=== PATIENT | male | born 1990 | race American Indian/Alaskan Native ===

== ENCOUNTER 2017-04-18 01:25 | Emergency (ER) | payer MEDICARE ==
[2017-04-18 03:01] LABS: Urine Drugs of Abuse Note Disclamer
[2017-04-18 03:32] LABS: Bilirubin,Urine NEG (Negative); Blood,Urine NEG (Negative); Ketones,Urine TR mg/dL (Negative); Leukocyte Esterase,Urine NEG (Negative); Mucus,Urine 3+ /HPF; Nitrite,Urine NEG (Negative)
[2017-04-18] MEDS ORDERED: ATIVAN IM PRN (06:14)
--- NOTE | 2017-04-18 06:15 | Emergency Department Report ---
ED Psych HPI - General Chief Complaint: Psych Stated Complaint: SUICIDAL IDEATIONS Time Seen by Provider: 04/18/17 06:13 Source: patient, RN notes reviewed Mode of arrival: Ambulatory Limitations: No Limitations - History of Present Illness Initial Comments: This is a 26-year-old male. He is previously unknown to me. He reports a history of hypertension. He does not have a local primary care doctor. The patient presents to the ER with the plan for suicide. He thinks he wants to overdose or drown himself. The symptoms are constant. He describes no exacerbating or relieving factors. He does not have access to guns or firearms. He is not expressing hallucinations. He does not have any headache, neck pain, chest pain, abdominal pain, testicular pain, irritative or obstructive urinary symptoms. He denies penile discharge. MD Complaint: suicidal ideation -: Gradual Associated Psychiatric Symptoms: suicidal ideation Quality: constant Improves With: none Worsens With: none If Self Harm: admits thoughts of, has plan - Related Data Home Medications Medication Instructions Recorded Confirmed Last Taken Imipramine HCl 50 mg PO QHS 04/18/17 04/18/17 04/11/17 Losartan [Cozaar] 25 mg PO QDAY 04/18/17 04/18/17 04/11/17 Propranolol [Inderal] 10 mg PO ONCE 04/18/17 04/18/17 04/11/17 amLODIPine [Norvasc] 10 mg PO DAILY 04/18/17 04/18/17 04/11/17 Allergies Allergy/AdvReac Type Severity Reaction Status Date / Time No Known Allergies Allergy Unverified 04/18/17 01:40 ED Review of Systems ROS: Stated complaint: SUICIDAL IDEATIONS Other details as noted in HPI Constitutional: denies: fever, malaise Eyes: denies: vision change ENT: denies: epistaxis Respiratory: denies: cough Cardiovascular: denies: chest pain Gastrointestinal: denies: abdominal pain Genitourinary: denies: dysuria, discharge, testicular pain Musculoskeletal: denies: back pain Skin: denies: lesions Neurological: denies: weakness Psychiatric: suicidal thoughts ED Past Medical Hx - Past Medical History Previous Medical History?: Yes Hx Hypertension: Yes - Surgical History Past Surgical History?: Yes Additional Surgical History: Navel - Social History Smoking Status: Never Smoker Substance Use Type: None - Medications Home Medications: Home Medications Medication Instructions Recorded Confirmed Last Taken Type Imipramine HCl 50 mg PO QHS 04/18/17 04/18/17 04/11/17 History Losartan [Cozaar] 25 mg PO QDAY 04/18/17 04/18/17 04/11/17 History Propranolol [Inderal] 10 mg PO ONCE 04/18/17 04/18/17 04/11/17 History amLODIPine [Norvasc] 10 mg PO DAILY 04/18/17 04/18/17 04/11/17 History ED Physical Exam - General Limitations: No Limitations General appearance: alert, in no apparent distress - Head Head exam: Present: atraumatic, normocephalic - Eye Eye exam: Present: normal appearance, PERRL, EOMI. Absent: nystagmus - ENT ENT exam: Present: normal exam, normal orophraynx, mucous membranes moist, normal external ear exam - Neck Neck exam: Present: normal inspection, full ROM. Absent: tenderness, meningismus - Respiratory Respiratory exam: Present: normal lung sounds bilaterally. Absent: respiratory distress, wheezes, rales, rhonchi, stridor, chest wall tenderness, accessory muscle use, decreased breath sounds, prolonged expiratory - Cardiovascular Cardiovascular Exam: Present: regular rate, normal rhythm, normal heart sounds. Absent: bradycardia, tachycardia, irregular rhythm, systolic murmur, diastolic murmur, rubs, gallop - GI/Abdominal GI/Abdominal exam: Present: soft, normal bowel sounds. Absent: distended, tenderness, guarding, rebound, rigid, pulsatile mass - Rectal Rectal exam: Present: deferred - Extremities Exam Extremities exam: Present: normal inspection, full ROM, normal capillary refill. Absent: tenderness, pedal edema, joint swelling, calf tenderness - Back Exam Back exam: Present: normal inspection, full ROM. Absent: tenderness, CVA tenderness (R), CVA tenderness (L), muscle spasm, paraspinal tenderness, vertebral tenderness - Neurological Exam Neurological exam: Present: alert, oriented X3, normal gait, other (Extraocular movements intact. Tongue midline. No facial droop. Facial sensation intact to light touch in the V1, V2, V3 distribution bilaterally. 5 and 5 strength in 4 extremities.. Sensation is intact to light touch in 4 extremities.). Absent : motor sensory deficit - Psychiatric Psychiatric exam: Present: normal affect, normal mood, suicidal ideation. Absent: homicidal ideation - Skin Skin exam: Present: warm, dry, intact, normal color. Absent: rash ED Course Vital Signs 04/18/17 04/18/17 04/18/17 01:33 01:40 02:32 Temperature 98.5 F 98.5 F Pulse Rate 89 89 Respiratory 18 18 18 Rate Blood Pressure 143/92 Blood Pressure 143/92 [Right] O2 Sat by Pulse 96 96 100 Oximetry 04/18/17 04/18/17 04/18/17 06:14 10:11 10:49 Temperature Pulse Rate 89 Respiratory 17 Rate Blood Pressure 155/109 Blood Pressure 138/100 155/109 [Right] O2 Sat by Pulse 98 Oximetry 04/18/17 04/18/17 04/18/17 10:50 13:22 13:23 Temperature 98 F Pulse Rate 91 H Respiratory 16 16 Rate Blood Pressure 155/109 Blood Pressure 158/101 [Right] O2 Sat by Pulse 97 97 Oximetry - Reevaluation(s) Reevaluation #1: 04/18/17 08:34 differential diagnosis: Mood disorder, suicidality, medical clearance for psychiatric placement Assessment and plan: 26-year-old male with suicidality. He has a GCS of 15, with an NIH score of 0, and an unremarkable physical exam. He is placed on a 1013. As needed agitation medications are ordered. His outpatient medications are continued. he nitially refused blood draws. I explained to the patient that blood draws were needed to be performed, and that if he did not cooperate he would be sedated with Haldol and Ativan, given that he is a danger to himself and other people, and we will obtain a blood draw anyhow. The patient is currently sleeping, and we are awaiting a blood draw at this time. Given that the patient is suicidal, he does not had decision-making capacity, and does not have the ability or capacity to refuse blood draws at this time. Reevaluation #2: 04/18/17 10:09 labs wnl at this time. serum toxicology pending patient in no distress Reevaluation #3: 04/18/17 12:54 toxicology studies unremarkable. There is no medical contraindication to psychiatric admission/evaluation and consultation at this time. The crisis team is informed. ED Medical Decision Making - Lab Data Result diagrams: 04/18/17 08:36 04/18/17 08:36 Vital Signs 04/18/17 04/18/17 04/18/17 01:33 01:40 02:32 Temperature 98.5 F 98.5 F Pulse Rate 89 89 Respiratory 18 18 18 Rate Blood Pressure 143/92 Blood Pressure 143/92 [Right] O2 Sat by Pulse 96 96 100 Oximetry 04/18/17 06:14 Temperature Pulse Rate 89 Respiratory 17 Rate Blood Pressure Blood Pressure 138/100 [Right] O2 Sat by Pulse 98 Oximetry Lab Results 04/18/17 04/18/17 Range/Units Unknown Unknown Urine Color [place] (Yellow) Urine Turbidity Clear (Clear) Urine pH 6.0 (5.0-7.0) Ur Specific [place] 1.030 (1.003-1.030) Urine Protein 30 mg/dl (Negative) mg/dL Urine Glucose (UA) Neg (Negative) mg/dL Urine Ketones Tr (Negative) mg/dL Urine Blood Neg (Negative) Urine Nitrite Neg (Negative) Urine Bilirubin Neg (Negative) Urine Urobilinogen 2.0 (<2.0) mg/dL Ur Leukocyte Esterase Neg (Negative) Urine WBC (Auto) 10.0 H (0.0-6.0) /HPF Urine RBC (Auto) 8.0 (0.0-6.0) /HPF Urine Mucus 3+ /HPF Urine Opiates Screen Presumptive negative Urine Methadone Screen Presumptive negative Ur Barbiturates Screen Presumptive negative Ur Phencyclidine Scrn Presumptive negative Ur Amphetamines Screen Presumptive negative U Benzodiazepines Scrn Presumptive negative Urine Cocaine Screen Presumptive negative U Marijuana (THC) Screen Presumptive negative Drugs of Abuse Note Disclamer Critical care attestation.: If time is entered above; I have spent that time in minutes in the direct care of this critically ill patient, excluding procedure time. ED Disposition Clinical Impression: Mood disorder Disposition: [id number]/TX-65 PSY HOSP/PSY UNIT Is pt being admited?: No Does the pt Need Aspirin: No Condition: Stable Referrals: CULLEN WALLER MD [Other] - 3-5 Days
[2017-04-18] MEDS ORDERED: HALDOL IM PRN (06:21)
[2017-04-18] MEDS ORDERED: INDERAL PO ONE (07:00)
[2017-04-18 09:10] LABS: Basophils % (Auto) 0.6 % (0.0-1.8); Eosinophils % (Auto) 1.7 % (0.0-4.3); Hematocrit 36.3 % (35.5-45.6); Hemoglobin 12.4 gm/dl (11.8-15.2); Mean Corpuscular HGB Conc 34 % (32-34); Mean Corpuscular Hemoglobin 28 pg (28-32); Mean Corpuscular Volume 81 fl (84-94); Platelet Count 164 K/mm3 (140-440); Red Blood Count 4.49 M/mm3 (3.65-5.03); Red Cell Distribution Width 13.6 % (13.2-15.2); White Blood Count 5.1 K/mm3 (4.5-11.0)
[2017-04-18 09:14] LABS: Anion Gap 16 mmol/L; BUN/Creatinine Ratio 8.88; Blood Urea Nitrogen 8 mg/dL (9-20); Calcium 8.9 mg/dL (8.4-10.2); Carbon Dioxide 26 mmol/L (22-30); Chloride 104.9 mmol/L (98-107); Glucose 110 mg/dL (75-100); Potassium 3.5 mmol/L (3.6-5.0); Sodium 143 mmol/L (137-145)
[2017-04-18] MEDS ORDERED: COZAAR PO SCH (10:00)
[2017-04-18] MEDS ORDERED: NORVASC PO SCH (10:00)
--- NOTE | 2017-04-18 12:52 | Consultation ---
History of Present Illness - Reason for Consult Reason for consult: depression Medications and Allergies Allergies Allergy/AdvReac Type Severity Reaction Status Date / Time No Known Allergies Allergy Unverified 04/18/17 01:40 Home Medications Medication Instructions Recorded Confirmed Last Taken Type Imipramine HCl 50 mg PO QHS 04/18/17 04/18/17 04/11/17 History Losartan [Cozaar] 25 mg PO QDAY 04/18/17 04/18/17 04/11/17 History Propranolol [Inderal] 10 mg PO ONCE 04/18/17 04/18/17 04/11/17 History amLODIPine [Norvasc] 10 mg PO DAILY 04/18/17 04/18/17 04/11/17 History Active Meds: Active Medications Amlodipine Besylate (Norvasc) 10 mg PO DAILY [facility] Last Admin: 04/18/17 10:50 Dose: 10 mg Haloperidol Lactate (Haldol) 5 mg IM Q6HR PRN PRN Reason: Agitation Imipramine HCl (Tofranil) 50 mg PO QHS [facility] Lorazepam (Ativan) 2 mg IM Q4HR PRN PRN Reason: Agitation Last Admin: 04/18/17 06:41 Dose: 2 mg Losartan Potassium (Cozaar) 25 mg PO QDAY [facility] Last Admin: 04/18/17 10:49 Dose: 25 mg Mental Status Exam - Vital signs Last Vital Signs Temp 98.5 F 04/18/17 01:40 Pulse 89 04/18/17 06:14 Resp 17 04/18/17 06:14 BP 155/109 04/18/17 10:50 Pulse Ox 98 04/18/17 06:14 Results Result Diagrams: 04/18/17 08:36 04/18/17 08:36 Abnormal lab results 04/18/17 04/18/17 04/18/17 Range/Units 08:36 08:36 08:36 MCV 81 L (84-94) fl Lymph % (Auto) 37.1 H (13.4-35.0) % [place] % (Auto) 11.1 H (0.0-7.3) % Potassium 3.5 L (3.6-5.0) mmol/L BUN 8 L (9-20) mg/dL Glucose 110 H (75-100) mg/dL Total Creatine Kinase 395 H (55-170) units/L Urine WBC (Auto) (0.0-6.0) /HPF Salicylates (2.8-20.0) mg/dL 04/18/17 04/18/17 Range/Units 08:36 Unknown MCV (84-94) fl Lymph % (Auto) (13.4-35.0) % [place] % (Auto) (0.0-7.3) % Potassium (3.6-5.0) mmol/L BUN (9-20) mg/dL Glucose (75-100) mg/dL Total Creatine Kinase (55-170) units/L Urine WBC (Auto) 10.0 H (0.0-6.0) /HPF Salicylates < 0.3 L (2.8-20.0) mg/dL All other labs normal. Assessment and Plan Assessment and plan: CHIEF COMPLAINT IN PATIENTS WORDS: HISTORY OF PRESENT ILLNESS REQUIRING ADMISSION TO INPATIENT LEVEL OF CARE: (Describe the onset of Illness, Intensity of Symptoms, and Circumstances Leading to Admission) This is a 26 year-old domiciled male who reports a formal PPH depression who now presents to the ER due to recent expression of suicidal thoughts. Patient notes he recently moved to [place] and is currently residing with a group of people. This environment is extremely stressful for him due to the frequent antagonizing he gets from his roommates. Consequently, patient has had a worsening of his mood symptoms in the context of medication 9 parents. Last dose of his medication imipramine was noted over a week ago. Currently he is also experiencing some mild withdrawal syndrome from not taking the TCA and discontinuing it abruptly. PSYCHIATRIC REVIEW OF SYSTEMS: Substance: UDS negative Depression: Overwhelmed, irritable Jasmyn: no labile moods, not hyperverbal, no flight of ideas Psychosis: no AVH, no thought disorder noted, no paranoia/grandiosity/erotomania Anxiety/ OCD/ PTSD: denies somatic symptoms, flashbacks, nightmares, avoidance, panic attacks Suicidality: Passive SI Other Self-Injurious Behavior: none currently, no SIB noted recently Violent/ Aggressive Behavior: none noted CURRENT MEDICATIONS: ( Psychiatric and Non-psychiatric ) Imipramine Amlodipine Propranolol Losartan ALLERGIES: NKDA PAST PSYCHIATRIC HISTORY: ( Prior Treatment, Precipitating Factors, Diagnosis, and Course of Treatment ) Inpatient: Previous treatment history noted Outpatient: No current outpatient providers Prior Suicide Attempts: Unknown Prior Self-Injurious Behaviors: Unknown PAST PSYCHIATRIC MEDICATION TRIALS: denies MEDICAL HISTORY: (Chronic and Acute Illnesses, Current Medical Treatment, Recent Hospitalizations) Denies Detoxification / Withdrawal: none noted MENTAL STATUS EXAM: General Appearance: Dressed in hospital gown, no acute distress Sensorium/Consciousness: alert and responding to external stimuli Eye Contact: limited Attitude / Behavior: cooperative, but guarded Psychomotor & Musculoskeletal Activity: WNL Mood: fine Affect: constricted Speech / Language: normal Thought Processes: organized, logical, linear, goal directed Thought Content: Passive SI, no HI Perception: no AVH Orientation: person, place, time, situation Judgment What would you do if you smelled smoke in a crowded movie theater?: poor/impulsive Insight: poor Intelligence Vocabulary, general fund of knowledge, educational level: Average Capacity of ADLs: Independent STRENGTHS: PSYCHOSOCIAL AND ENVIRONMENTAL STRESSORS: ADMITTING DIAGNOSES Psychiatric: Major depressive disorder Evidence for the following: Medical: n/a INITIAL PLAN OF CARE AND TREATMENT GOALS: Admitted to inpatient psychiatric hospital for further evaluation and treatment Patient will be transferred to [facility] today
[2017-04-18 13:23] VITALS: BP 158/101
[2017-04-18] MEDS ORDERED: TOFRANIL PO SCH (22:00)
== END 2017-04-18 16:30 ==
LOC: EEVIPCON 01:25 → ED 01:25
DX: F39 Unspecified mood [affective] disorder (principal); I10 Essential (primary) hypertension
CPT/HCPCS: 36415; 80048; 80307; 81001; 82550; 85025; 96372; 99285; G0480; J2060; 80320